=== PATIENT | male | born 1980 | race Caucasian/White ===

== ENCOUNTER 2020-09-16 15:10 | Day surgery (SDC) | payer BC, OTHER ==
[~2020-09-16] VITALS: Ht 180.3 cm; Wt 90.0 kg
[2020-09-16] MEDS ORDERED: ACETAMINOPHEN 500 MG TABLET PO ONE (15:30)
[2020-09-16] MEDS ORDERED: LACTATED RINGERS 1,000 ML IV SCH (15:30)
[2020-09-16] MEDS ORDERED: CHLORHEXIDINE 15 ML UDC MM ONE (15:30)
[2020-09-16 15:40] VITALS: BP 144/104
[2020-09-16] MEDS ORDERED: PROMETHAZINE 25 MG/ML, 1ML IVPush PRN (16:00)
[2020-09-16] MEDS ORDERED: FENTANYL PF 100 MCG/2ML IV PRN (16:00)
[2020-09-16] MEDS ORDERED: ONDANSETRON 2MG/ML, 2ML IVPush PRN (16:00)
[2020-09-16] MEDS ORDERED: OXYcodone 5 MG/5 ML ORAL.SOL UDC PO PRN (16:00)
[2020-09-16] MEDS ORDERED: hydrALAzine 20 MG/ML, 1ML IV PRN (16:00)
[2020-09-16] MEDS ORDERED: EPHEDRINE 50 MG/ML, 1ML IVPush PRN (16:00)
[2020-09-16] MEDS ORDERED: HYDROmorphone 1 MG/ML, 1ML INJ IVPush PRN (16:00)
[2020-09-16] MEDS ORDERED: LABETALOL 5MG/ML, 20ML IV PRN (16:00)
[2020-09-16] MEDS ORDERED: EPINEPHRINE TOPICAL SOLN 1 MG/ML, 30ML ONE (16:02)
[2020-09-16] MEDS ORDERED: BUPIVACAINE/PF 0.25% ONE (16:02)
[2020-09-16] MEDS ORDERED: MINERAL OIL 10 ML VIAL MC ONE (16:02)
[2020-09-16] MEDS ORDERED: EPINEPHRINE 1 MG/ML, 1ML ONE (16:03)
[2020-09-16] MEDS ORDERED: MIDAZOLAM 1 MG/ML, 2ML ONE (16:50)
[2020-09-16] MEDS ORDERED: FENTANYL PF 100 MCG/2ML ONE ×3 (16:50→19:10)
[2020-09-16] MEDS ORDERED: DEXAMETHASONE 4 MG/ML, 1ML ONE (16:52)
[2020-09-16] MEDS ORDERED: KETOROLAC 30 MG/1 ML ONE (17:07)
[2020-09-16] MEDS ORDERED: CEFAZOLIN 1,000 MG ONE (17:34)
[2020-09-16] MEDS ORDERED: ONDANSETRON 2MG/ML, 2ML ONE (17:34)
[2020-09-16] MEDS ORDERED: PROPOFOL 10 MG/ML, 20ML ONE (17:34)
[2020-09-16] MEDS ORDERED: SUCCINYLCHOLINE 20 MG/ML, 10ML ONE (17:34)
[2020-09-16] MEDS ORDERED: MEPERIDINE/PF 25MG/ML,1ML ONE (19:05)
[2020-09-16] MEDS ORDERED: OXYcodone 5 MG/5 ML ORAL.SOL UDC ONE (19:10)
[2020-09-16] MEDS ORDERED: MEPERIDINE/PF 25MG/0.5ML IVPush PRN (19:30)
== END 2020-09-16 20:50 | disposition home or self-care (01) ==
LOC: OR 15:10
PROVIDERS: ATTEND Orthopaedic Surgery
DX: S43.431A Superior glenoid labrum lesion of right shoulder, initial encounter (principal); M75.41 Impingement syndrome of right shoulder; G89.18 Other acute postprocedural pain; E66.3 Overweight; Z20.828 Contact with and (suspected) exposure to other viral communicable diseases; Z68.27 Body mass index [BMI] 27.0-27.9, adult; Z87.891 Personal history of nicotine dependence; X58.XXXA Exposure to other specified factors, initial encounter; Y93.89 Activity, other specified; Y92.89 Other specified places as the place of occurrence of the external cause; Y99.8 Other external cause status
CPT/HCPCS: 29807; 29826; 29828; 64415; C1713; J0171; J0330; J0690; J1885; J2175; J2250; J2405; J2704; J3010; U0003; J1100